=== PATIENT | male | born 1975 | race Caucasian/White ===

== ENCOUNTER 2018-06-28 20:39 | Emergency (ER) | payer MEDICARE ==
[~2018-06-28] VITALS: Ht 180.3 cm; Wt 90.7 kg
[~2018-06-28 20:39] MED LIST: ALBU90OI INH; ALBU90OI61 INH; AMOCLA875 PO; Augmentin 875-1 EACH PO; CITA20 PO; CLIN150 PO; CYCL10 PO; GUAI120S1 PO; GUAI600T33 PO; HYDACE5 PO; HYDR1TAB94 PO; IBUP600 PO; KETO10 PO; NAPR500 PO; NEOPOLHCSU RIGHTEAR; Naprosyn500 MG PO; Norco 5-325 Ta1 EACH PO; OFLO.3OPSO OP; PENVK500 PO; PRED20 PO; PROM25 PO; Prednisone20 MG PO; TRAM50 PO; Ultram50 MG PO; Veetids 500500 MG PO; Zithromax250 MG PO; Zofran Odt8 MG SL
[2018-06-28] MEDS ORDERED: ERYT1OIN BOTHEYES (21:41)
== END 2018-06-28 21:59 | disposition home or self-care (01) ==
LOC: ER 20:39
DX: S05.02XA Injury of conjunctiva and corneal abrasion without foreign body, left eye, initial encounter (principal); S05.01XA Injury of conjunctiva and corneal abrasion without foreign body, right eye, initial encounter; J45.909 Unspecified asthma, uncomplicated; F20.9 Schizophrenia, unspecified; F17.210 Nicotine dependence, cigarettes, uncomplicated; X58.XXXA Exposure to other specified factors, initial encounter
CPT/HCPCS: 99283

== ENCOUNTER 2018-07-29 21:52 | Emergency (ER) | payer MEDICARE ==
[~2018-07-29] VITALS: Ht 180.3 cm; Wt 88.5 kg
[~2018-07-29 21:52] MED LIST changes: +ERYT1OIN BOTHEYES
[2018-07-29] MEDS ORDERED: IMPOYZ60 GM TOP (23:52)
[2018-07-29] MEDS ORDERED: Prednisone20 MG PO (23:52)
== END 2018-07-30 00:08 | disposition home or self-care (01) ==
LOC: ER 21:52
DX: L23.7 Allergic contact dermatitis due to plants, except food (principal); F17.210 Nicotine dependence, cigarettes, uncomplicated
CPT/HCPCS: 99283

== ENCOUNTER 2018-09-12 23:09 | Emergency (ER) | payer MEDICARE ==
[~2018-09-12] VITALS: Ht 180.3 cm; Wt 88.5 kg
[~2018-09-12 23:09] MED LIST changes: +IMPOYZ60 GM TOP
[2018-09-13] MEDS ORDERED: IBUP600 PO ×2 (00:40→00:55)
[2018-09-13] MEDS ORDERED: Amoxicillin875 MG PO (00:55)
== END 2018-09-13 01:15 | disposition home or self-care (01) ==
LOC: ER 23:09
DX: K02.9 Dental caries, unspecified (principal); F20.9 Schizophrenia, unspecified; F17.210 Nicotine dependence, cigarettes, uncomplicated
CPT/HCPCS: 99282

== ENCOUNTER 2018-12-27 07:43 | Emergency (ER) | payer MEDICARE ==
[~2018-12-27] VITALS: Ht 180.3 cm; Wt 86.2 kg
[~2018-12-27 07:43] MED LIST changes: +Amoxicillin875 MG PO
[2018-12-27] MEDS ORDERED: Amoxicillin875 MG PO (08:53)
[2018-12-27] MEDS ORDERED: IBUP600 PO (08:53)
[2018-12-27] MEDS ORDERED: Ultram50 MG PO (08:53)
== END 2018-12-27 09:05 | disposition home or self-care (01) ==
LOC: ER 07:43
DX: K04.7 Periapical abscess without sinus (principal); F17.210 Nicotine dependence, cigarettes, uncomplicated
CPT/HCPCS: 99282

== ENCOUNTER 2019-07-08 15:33 | Emergency (ER) | payer SELFPAY ==
[~2019-07-08] VITALS: Ht 180.3 cm; Wt 90.7 kg
[2019-07-08] MEDS ORDERED: CYCL10 PO (17:19)
[2019-07-08] MEDS ORDERED: LIDO700A20 TOP (17:19)
== END 2019-07-08 17:27 | disposition home or self-care (01) ==
LOC: ER 15:33
DX: M54.41 Lumbago with sciatica, right side (principal); F17.200 Nicotine dependence, unspecified, uncomplicated
CPT/HCPCS: 72100; 99283-25; J1100

== ENCOUNTER 2020-12-15 02:09 | Emergency (ER) | payer MEDICARE ==
[~2020-12-15] VITALS: Ht 180.3 cm; Wt 94.3 kg
[~2020-12-15 02:09] MED LIST changes: +LIDO700A20 TOP
[2020-12-15 02:41] LABS: BASOPHILS ABSOLUTE AUTO 0.06 K/mm3 (0.00-0.23); BASOPHILS PERCENT AUTO 1 % (0-2); EOSINOPHILS ABSOLUTE AUTO 0.17 K/mm3 (0.00-0.68); EOSINOPHILS PERCENT AUTO 2 % (0-6); Hematocrit 39.9 % (37.0-53.0); Hemoglobin 13.9 g/dL (13.5-17.5); IMMATURE GRAN ABSOLUTE AUTO 0.05 K/mm3 (0.00-0.10); IMMATURE GRAN PERCENT AUTO 0 % (0-1); LYMPHOCYTES ABSOLUTE AUTO 2.99 K/mm3 (0.84-5.20); LYMPHOCYTES PERCENT AUTO 26 % (21-46); MONOCYTES ABSOLUTE AUTO 0.75 K/mm3 (0.16-1.47); MONOCYTES PERCENT AUTO 7 % (4-13); Mean Corpuscular HGB 30.8 pg (26.0-34.0); Mean Corpuscular HGB Conc 34.8 g/dL (31.5-36.5); Mean Corpuscular Volume 88 fL (80-100); Mean Platelet Volume 10.9 fL (9.1-12.4); NEUTROPHILS ABSOLUTE AUTO 7.52 K/mm3 (1.96-9.15); NEUTROPHILS PERCENT AUTO 65 % (41-73); Platelet Count 238 K/mm3 (150-400); RDW Coefficient Variation 13.2 % (11.7-14.2); RDW Standard Deviation 42.7 fL (35.1-46.3); Red Blood Cell Count 4.52 M/mm3 (4.30-5.90); White Blood Cell Count 11.54 K/mm3 (4.00-11.30)
[2020-12-15 02:56] LABS: Alanine Aminotransfer (ALT/SGP 24 U/L (12-78); Albumin, Blood 3.5 g/dL (3.4-5.0); Albumin/Globulin Ratio 1.1 (0.8-1.8); Alk Phos 92 U/L (50-136); Anion Gap 7 mmol/L (6-16); Aspartate Aminotrans (AST/SGOT 20 U/L (12-37); Bilirubin, Total 0.2 mg/dL (0.1-1.0); Blood Urea Nitrogen 15 mg/dL (8-24); Bun/Creatinine Ratio 17.2 (12.0-20.0); CO2, Blood 25 mmol/L (21-32); Calcium, Blood 8.6 mg/dL (8.5-10.1); Chloride, Blood 110 mmol/L (98-108); Creatinine, Blood 0.87 mg/dL (0.60-1.20); Globulin, Blood 3.1 g/dL (2.2-4.0); Glomerular Filtration Rate >60 (60-); Glucose, Blood 181 mg/dL (70-99); Potassium, Blood 3.2 mmol/L (3.5-5.5); Sodium, Blood 142 mmol/L (136-145); Total Protein, Blood 6.6 g/dL (6.4-8.2)
[2020-12-15] MEDS ORDERED: Norco 10-325 T1 EACH PO (04:05)
[2020-12-15] MEDS ORDERED: ONDA4ODT MM (04:05)
[2020-12-15 04:09] LABS: Source, Urine Clean Catch
[2020-12-15] MEDS ORDERED: Flomax0.4 MG PO (04:10)
[2020-12-15 04:16] LABS: Blood, Urine 5+ (Neg); Glucose Qualitative, Urine Neg (Neg); Ketones, Urine 1+ (Neg); Leukocyte Esterase, Urine 1+ (Neg); Nitrite, Urine Neg (Neg); Protein, Urine 2+ (Neg); Specific Gravity, Urine 1.025 (1.003-1.022); Urobilinogen, Urine 3+ (Normal)
[2020-12-15 04:17] LABS: Appearance, Urine Clear (Clear); Bilirubin, Urine 1+ (Neg); Color, Urine Amber (P-Yellow)
[2020-12-15 05:11] LABS: Red Blood Cells, Urine TNTC /hpf (0-2); White Blood Cells, Urine 0-2 /hpf (0-5)
[2020-12-15 05:12] LABS: Bacteria Rare /hpf; Mucus Light (0-Heavy); Squamous Epithelial Cells Not Seen /hpf (Few)
== END 2020-12-15 04:25 | disposition home or self-care (01) ==
LOC: ER 02:09
PROVIDERS: Emergency Medicine
DX: N13.2 Hydronephrosis with renal and ureteral calculous obstruction (principal); F17.210 Nicotine dependence, cigarettes, uncomplicated; Z79.899 Other long term (current) drug therapy
CPT/HCPCS: 74176; 80053; 81001; 85025; 87086; 96374; 96375; 99284-25; A9270; J1170; J3010